=== PATIENT | female | born 1995 | race Caucasian/White ===

== ENCOUNTER 2021-02-26 10:47 | Emergency (ER) | payer MEDICAID ==
[~2021-02-26] VITALS: Ht 165.1 cm; Wt 68.0 kg
[2021-02-26 10:49] VITALS: BP 119/78
--- NOTE | 2021-02-26 10:49 | NUR ---
TO BED AMBULATORY
--- NOTE | 2021-02-26 11:01 | NUR ---
DR. BRYANT BEDSIDE EVALUATING PT
--- NOTE | 2021-02-26 11:10 | NUR ---
25 Y/O FEMALE WITH C/O R ANKLE SWELLING. PT STATED "SHE WAS DANCING AT HOME LAST NIGHT AND STEPPED OVER HER SHOE AND STEPPED INCORRECTLY." PT R ANKLE SWOLLEN UPON ASSESSMENT. PMH: NONE NKA
--- NOTE | 2021-02-26 11:35 | NUR ---
XRAY BEDSIDE WITH PT
[2021-02-26] MEDS ORDERED: IBUP-2213 PO (11:42)
--- NOTE | 2021-02-26 11:47 | NUR ---
GINO WRAP PLACED ON PT R ANKLE. +CSM
--- NOTE | 2021-02-26 11:48 | NUR ---
PT GIVEN INSTRUCTION ON PROPER USE OF CRUTCHES. CRUTCHES FITTED TO PT HEIGHT AND ARM LENGTH. PT DEMONSTRATED SAFE USE FOR APPROXIMATELY 20 FEET, STATED SHE FELT COMFORTABLE WITH USE.
[2021-02-26 12:00] VITALS: BP 119/78
--- NOTE | 2021-02-26 12:00 | NUR ---
Patient discharged with v/s stable. Written and verbal after care instructions given and explained. Patient alert, oriented and verbalized understanding of instructions. Ambulatory with steady gait WITH THE USE OF CRUTCHES. All questions addressed prior to discharge. ID band removed. Patient advised to follow up with PMD. Rx of IBURFOEN given. Patient educated on indication of medication including possible reaction and side effects. Opportunity to ask questions provided and answered.
== END 2021-02-26 12:00 | disposition home or self-care (01) ==
LOC: MED 10:47
DX: S93.401A Sprain of unspecified ligament of right ankle, initial encounter (principal); Z79.899 Other long term (current) drug therapy; W19.XXXA Unspecified fall, initial encounter; Y93.89 Activity, other specified; Y92.89 Other specified places as the place of occurrence of the external cause; Y99.8 Other external cause status
CPT/HCPCS: 73610; 99282; 99283